=== PATIENT | female | born 1975 | race Caucasian/White ===

== ENCOUNTER 2021-08-01 19:08 | Emergency (ER) | payer MEDICARE, MEDICAID ==
[~2021-08-01] VITALS: Ht 160 cm; Wt 59.1 kg
[2021-08-01 19:13] VITALS: BP 122/98
[2021-08-01 19:30] VITALS: BP 136/80
[2021-08-01 20:01] VITALS: BP 127/78
[2021-08-01 20:30] VITALS: BP 133/77
[2021-08-01] MEDS ORDERED: EC-NAPROXEN500 MG PO (20:48)
[2021-08-01] MEDS ORDERED: LORTAB 5/3255 MG PO (20:48)
[2021-08-01] MEDS ORDERED: OMNICEF300 M1 PO (20:48)
[2021-08-01 20:51] VITALS: BP 133/77
== END 2021-08-01 20:57 | disposition home or self-care (01) ==
LOC: ED 19:08
PROC: 0HDRXZZ Extraction of Toe Nail, External Approach (ICD-10-PCS; principal; 2021-08-01)
DX: S91.214A Laceration without foreign body of right lesser toe(s) with damage to nail, initial encounter (principal); J44.9 Chronic obstructive pulmonary disease, unspecified; W20.8XXA Other cause of strike by thrown, projected or falling object, initial encounter

== ENCOUNTER 2023-10-25 23:26 | Emergency (ER) | payer MEDICARE, MEDICAID ==
[~2023-10-25] VITALS: Ht 160 cm; Wt 58.0 kg
[~2023-10-25 23:26] MED LIST: EC-NAPROXEN500 MG PO; LORTAB 5/3255 MG PO; OMNICEF300 M1 PO
[2023-10-26 00:30] VITALS: BP 128/83
[2023-10-26 00:45] VITALS: BP 134/73
[2023-10-26] MEDS ORDERED: AMOXICILLIN TRIHYDRATE 500 MG/CAP PO ONE (00:45)
[2023-10-26] MEDS ORDERED: ADDERALL XR30 MG PO (00:47)
[2023-10-26] MEDS ORDERED: AMOXICILLIN500 M2 PO (00:47)
[2023-10-26 01:00] VITALS: BP 132/80
[2023-10-26 01:15] VITALS: BP 128/77
[2023-10-26 01:19] VITALS: BP 128/77
== END 2023-10-26 01:41 | disposition home or self-care (01) ==
LOC: ED 23:26
DX: J32.9 Chronic sinusitis, unspecified (principal); J44.9 Chronic obstructive pulmonary disease, unspecified